=== PATIENT | female | born 2005 | race African-American/Black ===

== ENCOUNTER 2023-04-23 02:39 | Emergency (ER) | payer OTHER, SELFPAY ==
[2023-04-23 02:39] VITALS: BP 142/82; PULSE 115; RESP 24; TEMP 36.7; O2SAT 100
[2023-04-23 02:48] VITALS: O2SAT 100
--- NOTE | 2023-04-23 03:21 | ED.GENADULT ---
HPI - General Adult General Chief complaint: Shortness of Breath/Dyspnea Stated complaint: DIFFICULTY IN BREATHING, ASTHMATIC History of Present Illness HPI narrative: This is a 17-year-old female presenting ED with chief complaint of mucus stuck in her throat. Patient says she has had cold symptoms for 1 day. When she was sleeping she was woken up from sleep because she felt like she had mucus in her throat which was making it hard to breathe. She then called her mother who felt she should call an ambulance. She also took her inhaler and a dose of her antibiotics which she is taking for a UTI. When EMS arrived they help her take an albuterol treatment and she was then brought to the hospital. At this point patient is resting comfortably. Denies sore throat, congestion, chest pain difficulty breathing abdominal pain. Patient states that she has anxiety. Related Data Allergies Allergy/AdvReac Type Severity Reaction Status Date / Time nitrofurantoin Allergy Anaphylaxis Verified 04/23/23 02:49 [From Macrobid] [facility] Past Medical History Medical History Asthma Exam Narrative: APPEARANCE: No apparent distress. Head: no erythema or swelling of the posterior oropharynx, no stridor EYES: EOMI, NOSE: Atraumatic NECK: Trachea midline RESPIRATORY: No increased rate of breathing, lungs are clear to auscultation patient is speaking in full sentences CARDIOVASCULAR: RRR, ABDOMINAL: Non-distended MUSCULOSKELETAl: No obvious deformities NEURO: Alert. Moving 4/4 extremities SKIN:: Warm, dry. Normal color PSYCHIATRIC: Normal affect Course Vital Signs Vital signs: Vital Signs Temperature 98.1 F 04/23/23 02:39 Pulse Rate 115 H 04/23/23 02:39 Respiratory Rate 24 H 04/23/23 02:39 Blood Pressure 142/82 H 04/23/23 02:39 Pulse Oximetry 100 04/23/23 02:39 Oxygen Delivery Room Air 04/23/23 02:39 Temperature 98.1 F 04/23/23 02:39 Pulse Rate 102 H 04/23/23 03:53 Respiratory Rate 20 04/23/23 03:53 Blood Pressure 133/78 04/23/23 03:53 Pulse Oximetry 100 04/23/23 03:53 Oxygen Delivery Room Air 04/23/23 02:48 Medical Decision Making MDM Narrative Medical decision making narrative: -Course: 17-year-old female presenting with difficulty breathing due to mucus stuck in her throat. By time she arrived in the emergency department she was asymptomatic. Patient states that anxiety did play a role in her calling the ambulance. Patient was given Mucinex. Upon re-evaluation the patient is resting comfortably. She is slightly tachycardic at 102 but had just received an albuterol treatment. She is comfortable going home and returning if her condition is to worsen. 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 -Hx from independent Sources: EMS -Interventions: Mucinex 1200 mg -Shared decision making / Disposition: discharge -RX Mucinex Vital Signs Vital Signs: Vital Signs Temperature 98.1 F 04/23/23 02:39 Pulse Rate 115 H 04/23/23 02:39 Respiratory Rate 24 H 04/23/23 02:39 Blood Pressure 142/82 H 04/23/23 02:39 Pulse Oximetry 100 04/23/23 02:39 Oxygen Delivery Room Air 04/23/23 02:39 Temperature 98.1 F 04/23/23 02:39 Pulse Rate 102 H 04/23/23 03:53 Respiratory Rate 20 04/23/23 03:53 Blood Pressure 133/78 04/23/23 03:53 Pulse Oximetry 100 04/23/23 03:53 Oxygen Delivery Room Air 04/23/23 02:48 Discharge Plan Discharge Clinical Impression: Excessive mucus secretion Patient Disposition: Home, Self-Care Condition: Stable Instructions: Antibiotic Form, Upper Respiratory Infection (ED) Additional Instructions: Please take Mucinex to help control your mucous secretions. You can use Motrin and Tylenol if y
[2023-04-23 03:53] VITALS: BP 133/78; PULSE 102; RESP 20; O2SAT 100
[2023-04-23] MEDS: guaiFENesin 12 HR 600 MG TABCR 1200 MG PO (03:54)
== END 2023-04-23 04:42 | disposition home or self-care (01) ==
LOC: ANHED 04:16
PROVIDERS: Emergency Provider Emergency Medicine
DX: R09.3 Abnormal sputum (principal); J45.909 Unspecified asthma, uncomplicated
CPT/HCPCS: 99283; A9270

== ENCOUNTER 2024-05-21 00:26 | Emergency (ER) | payer OTHER, SELFPAY ==
[2024-05-21 00:27] VITALS: BP 119/69; PULSE 90; RESP 18; TEMP 36.8; O2SAT 100
--- NOTE | 2024-05-21 00:27 | ECG_ITS ---
Test Date: 2024-05-21 00:40:00 Measurements Intervals [place] Rate: 80 P: 64 AK: 182 QRS: 59 QRSD: 83 T: 50 QT: 354 QTc: 409 Interpretive Statements SINUS RHYTHM WITH MARKED SINUS ARRHYTHMIA SEPTAL MYOCARDIAL INFARCTION , OF INDETERMINATE AGE [40+ ms Q WAVE IN V1/V2] No previous ECG available for comparison Electronically Signed On 05-21-2024 09:54:28 VIDEO PRODUCER by Bj Mcmanus M.D.
--- NOTE | 2024-05-21 01:11 | PC.NURSE ---
Pt states she does not feel faint anymore and was curious how long they would be waiting, if long she would get a ride to a different hospital. This RN stated we do not give out wait times but that we advise her to stay to be seen by doctor. Pt states she feels better but will return if she feels bad again. Pt IV from EMS was taken out and pt took off her C Collar. Pt left without being seen by provider.
== END 2024-05-21 01:11 | disposition left against medical advice (07) ==
PROVIDERS: Emergency Provider Emergency Medicine
DX: R09.3 Abnormal sputum (principal); N39.0 Urinary tract infection, site not specified; J45.909 Unspecified asthma, uncomplicated
CPT/HCPCS: 93005; 99199